=== PATIENT | male | born 1945 | race Caucasian/White ===

== ENCOUNTER → 2021-08-06 | Emergency (ER) | payer OTHER | END | disposition home or self-care (01) | LOC: ER 14:30 | DX: S00.93XA Contusion of unspecified part of head, initial encounter (principal); S40.011A Contusion of right shoulder, initial encounter; S80.01XA Contusion of right knee, initial encounter; W18.39XA Other fall on same level, initial encounter; Y93.89 Activity, other specified; Y92.59 Other trade areas as the place of occurrence of the external cause; I10 Essential (primary) hypertension; E11.9 Type 2 diabetes mellitus without complications ==